=== PATIENT | female | born 1975 | race Two or more races ===

== ENCOUNTER → 2018-12-02 | Outpatient (CLI) | payer OTHER | END | disposition home or self-care (01) | LOC: PRENATAL 14:00 | DX: O99.89 Other specified diseases and conditions complicating pregnancy, childbirth and the puerperium (principal); O09.511 Supervision of elderly primigravida, first trimester; O34.11 Maternal care for benign tumor of corpus uteri, first trimester ==

== ENCOUNTER 2019-01-20 13:45 | Outpatient (CLI) | payer OTHER | END 2019-01-20 14:55 | disposition home or self-care (01) | LOC: PRENATAL 13:45 | DX: O65.5 Obstructed labor due to abnormality of maternal pelvic organs (principal); O34.12 Maternal care for benign tumor of corpus uteri, second trimester; O09.512 Supervision of elderly primigravida, second trimester ==

== ENCOUNTER → 2019-03-17 | Outpatient (CLI) | payer OTHER | END | disposition home or self-care (01) | LOC: PRENATAL 10:00 | DX: O99.89 Other specified diseases and conditions complicating pregnancy, childbirth and the puerperium (principal); O26.843 Uterine size-date discrepancy, third trimester ==

== ENCOUNTER → 2019-04-04 | Outpatient (CLI) | payer OTHER | END | disposition home or self-care (01) | LOC: EDUNIT# 11-29 15:00 → PRENATAL 11-29 15:00 | DX: O26.842 Uterine size-date discrepancy, second trimester (principal); O35.3XX0 Maternal care for (suspected) damage to fetus from viral disease in mother, not applicable or unspecified; O98.912 Unspecified maternal infectious and parasitic disease complicating pregnancy, second trimester ==

== ENCOUNTER → 2019-05-05 | Outpatient (CLI) | payer OTHER | END | disposition home or self-care (01) | LOC: LAB → PRENATAL 13:30 | DX: O09.513 Supervision of elderly primigravida, third trimester (principal); O24.410 Gestational diabetes mellitus in pregnancy, diet controlled; O32.9XX1 Maternal care for malpresentation of fetus, unspecified, fetus 1; O26.853 Spotting complicating pregnancy, third trimester; O26.843 Uterine size-date discrepancy, third trimester; O36.8130 Decreased fetal movements, third trimester, not applicable or unspecified ==

== ENCOUNTER → 2019-05-12 | Outpatient (CLI) | payer OTHER | END | disposition home or self-care (01) | LOC: PRENATAL 15:48 | DX: O09.523 Supervision of elderly multigravida, third trimester (principal); O09.93 Supervision of high risk pregnancy, unspecified, third trimester; O32.0XX1 Maternal care for unstable lie, fetus 1; O24.410 Gestational diabetes mellitus in pregnancy, diet controlled; O32.9XX1 Maternal care for malpresentation of fetus, unspecified, fetus 1; O99.89 Other specified diseases and conditions complicating pregnancy, childbirth and the puerperium ==

== ENCOUNTER 2019-05-30 06:39 | Inpatient (IN) | payer OTHER ==
[~2019-05-30] VITALS: Ht 157.5 cm; Wt 56.7 kg
[2019-05-30] MEDS ORDERED: LABETALOL HCL100 MG PO (08:45)
[2019-05-30] MEDS ORDERED: PRENATAL + DHA1 EAC1 PO (08:46)
[2019-05-30] MEDS ORDERED: FERROCITE PLUS1 EACH PO (08:47)
[2019-06-04] MEDS ORDERED: LABETALOL HCL200 MG PO (13:26)
== END 2019-06-04 17:17 | disposition home or self-care (01) | DRG 806 ==
LOC: LDR 06:39 → OB/GYN 15:55 → LDR 06-01 09:26 → OB/GYN 06-03 17:39
PROVIDERS: ADMIT Obstetrics & Gynecology
PROC: 10907ZC Drainage of Amniotic Fluid, Therapeutic from Products of Conception, Via Natural or Artificial Opening (ICD-10-PCS; 2019-05-30)
PROC: 4A1HXCZ Monitoring of Products of Conception, Cardiac Rate, External Approach (ICD-10-PCS; 2019-05-30)
PROC: 10E0XZZ Delivery of Products of Conception, External Approach (ICD-10-PCS; principal; 2019-05-31)
PROC: 0KQM0ZZ Repair Perineum Muscle, Open Approach (ICD-10-PCS; 2019-05-31)
PROC: 3E0P7VZ Introduction of Hormone into Female Reproductive, Via Natural or Artificial Opening (ICD-10-PCS; 2019-05-31)
PROC: 3E033VJ Introduction of Other Hormone into Peripheral Vein, Percutaneous Approach (ICD-10-PCS; 2019-05-31)
PROC: 30233N1 Transfusion of Nonautologous Red Blood Cells into Peripheral Vein, Percutaneous Approach (ICD-10-PCS; 2019-06-02)
DX: O70.1 Second degree perineal laceration during delivery (principal); D62 Acute posthemorrhagic anemia; Z37.0 Single live birth; O90.81 Anemia of the puerperium; Z3A.39 39 weeks gestation of pregnancy